=== PATIENT | female | born 1950 | race Caucasian/White ===

== ENCOUNTER 2021-04-01 17:05 | Inpatient (IN) | payer OTHER ==
[~2021-04-01] VITALS: Ht 149.9 cm; Wt 51.7 kg
--- NOTE | ~2021-04-01 | HC ---
[facility] [place] [address] CONSULTATION Name: JOSE FALLON Room #: 210-P [facility] IN .R.#: [id number] Admission: 04/01/21 Attend Phys: David Knight Discharge: Date of : 54 Report #: [id number] THIS REPORT FOR: cc: Felipe Downey,Taras Villar MD ~ cc: Frank Mead MD, Cooper Van MD [facility], Maximo Blue REASON FOR CONSULTATION: History of renal cell carcinoma with possible anginal chest pain. HISTORY OF PRESENT ILLNESS: The patient is a pleasant 70-year-old female from _[place] who developed chest pain that is different than usual and was admitted to [place]. Her history is significant for a diagnosis of renal cell carcinoma from several years ago, who also has a history of pulmonary emboli with bleeding on anticoagulant with subsequent placement of IVC filter within the last year or two. The question has now been raised about whether they should consider an angiogram and if lesions are found whether they can place a stent and safely place the patient on dual antiplatelet therapies. When the patient had her last GI bleed outside at [facility], they had elected not to do a GI evaluation, she had one several years earlier that was unrevealing. The patient does have a history of peptic ulcer disease, GERD, etc. The patient on this admission does have a CAT scan angio showing small volume pulmonary emboli without any evidence of clot in her legs. The patient had developed the onset of chest pain different than usual. No recent fevers, no chills, no new arm or leg swelling recently. No new skin rash. She does have some diarrhea related to her chemotherapy pill called cabozantinib. No swallowing difficulties. No mouth sores. PAST HISTORY: Notable for the metastatic renal cell carcinoma. The patient has been evaluated for abdominal pain in 10/2010 was found to have a 4 cm renal cell carcinoma with a partial nephrectomy at that time. In 11/2014, she had a local recurrence with a partial nephrectomy on the right. Outside records mention that in 01/2018, she had a left partial nephrectomy for a 1.5 cm tumor. 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 Unfortunately, in 10/2018, a CAT scan ____ bony lesions, particularly L5. This was biopsied with subsequent radiation therapy. In 12/2018, the patient began ipilimumab and Opdivo, which is complicated with colitis requiring infliximab and steroids. The patient then began pazopanib in 05/2019. She had quite a bit of diarrhea and this had to be held. In 05/2020, she was begun on cabozantinib at a lower dose of 40 a day. This had to be reduced and she is currently on every other day dosing. I believe, I saw her recent report that showed she had stable disease. She also has a history for what looks like a pulmonary emboli as mentioned in the past [facility] [address] [place] [address] CONSULTATION Name: JOSE FALLON Room #: 210-P [facility] IN ..#: [id number] Admission: 04/01/21 Attend Phys: David Knight Discharge: Date of : 54 Report #: [id number] with bleeding on anticoagulant and subsequent IVC filter. She does not see any obvious blood in her urine or stool, but has recently received IV iron from her medical oncologist suggesting that she is losing iron somewhere. She received several doses and has received initiation of a course of INFeD/iron infusion here. She also has ineffective production, had a low EPO level, was begun on Procrit or similar agent back in 10/2020 by the patient's description and the notes from Dr. Blue. She also has a history of interstitial cystitis, COPD, diverticulitis, GERD, hyperlipidemia, history of hypertension, history of osteoarthritis, history of peptic ulceration in the past, quit smoking in 1992. 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 Also, several dogs if I understand correctly, also ____. PHYSICAL EXAMINATION: GENERAL: The patient appears her stated age. VITAL SIGNS: Recent height is 4 feet 11 inches, weight is 123.4 pounds, blood pressure is 110/69, O2 sat 96%, pulse 77, respirations 20, afebrile at 97.9. NEUROLOGIC: Mood, she is alert, pleasant, conversant. HEENT: Face is symmetrical. Speech and thought pattern are normal. LUNGS: Clear to auscultation anteriorly without any rhonchi, wheezes, rales. Symmetric, unlabored expansion. HEART: Appears regular rate. LYMPHATICS: No enlarged lymph nodes in the supraclavicular, cervical, axillary or inguinal region. ABDOMEN: Nonobese. No masses, nontender. EXTREMITIES: Perhaps trace edema if any. No obvious skin rash. LABORATORY DATA: Shows a creatinine of 1.3. Iron studies show iron of 33, low, percent saturation 19%. Coags baseline were normal. White count here is 3.5 today, hemoglobin 9.9, MCV 95.3, platelets 245. Ferritin 50. We do not have a differential on her blood count here. MEDICATIONS: At this time in the hospital, currently include docusate 100 daily, hydromorphone p.r.n., Xanax 0.5 q. 12 p.r.n., metoprolol 25 daily, isosorbide 30 mg daily, citalopram 40 daily, levetiracetam 750 daily, aspirin 81 daily, Ambien 5 mg at bedtime p.r.n., hydromorphone p.r.n., Tylenol p.r.n., MiraLax p.r.n., Zofran p.r.n. She is getting the IV iron 200 mg daily for 5 days. ASSESSMENT AND PLAN: 1. Iron deficiency anemia. Whether this may be related to GI blood loss, even though not obvious to patient, not sure that the GI procedure would change this much, though we will await their input. I personally would think it is probably best to avoid antiplatelet drugs or anticoagulants given her history of [facility] [address] [place] [address] CONSULTATION Name: JOSE FALLON Room #: 210-P [facility] IN [facility].#: [id number] Admission: 04/01/21 Attend Phys: David Knight Discharge: Date of : 54 Report #: [id number] bleeding. 2. Inadequate erythropoietin production, consider restarting erythropoietin agent as an outpatient with Dr. Blue. 3. History of pulmonary emboli in the past, now with small volume PE on CT angiogram, but negative ultrasound of the legs. Given history of bleeding, I would not anticoagulate, but follow clinically at this time and watch carefully. 4. Question of coronary artery disease with question of dual antiplatelet medication usage. I would probably avoid it given her history, I did discuss this with Dr. Cooper Van. 5. History of metastatic renal cell carcinoma, most likely continue cabozantinib under his direction every other day. 6. Chronic interstitial nephritis per others. 7. Chronic obstructive pulmonary disease per others. 8. History of diverticulitis and diverticulosis, not known to be a current issue. 9. Gastroesophageal reflux disease per others. 10. Hyperlipidemia per others. 11. Hypertension. Defer meds to others. 12. History of osteoarthritis per others. 13. History of smoking, quit in 1992. 14. Maintenance. Continue monitoring. By: [id number] Taras Trujillo MD /nt
[2021-04-01 17:00] VITALS: BP 122/89
[2021-04-01 19:34] VITALS: BP 136/81
[2021-04-01] MEDS ORDERED: CELEXA 20 MG TA20 MG PO (20:22)
[2021-04-01] MEDS ORDERED: ACIDOPHILUS1 EACH PO (20:27)
[2021-04-01] MEDS ORDERED: FLEXERIL PO (20:28)
[2021-04-01] MEDS ORDERED: PRAVACHOL40 MG PO (20:29)
[2021-04-01] MEDS ORDERED: KEPPRA750 MG PO (20:29)
[2021-04-01] MEDS ORDERED: COLACE100 MG PO (20:29)
[2021-04-01] MEDS ORDERED: SINGULAIR 10 MG10 M1 PO (20:30)
[2021-04-01] MEDS ORDERED: BENADRYL25 MG PO (20:31)
[2021-04-01] MEDS ORDERED: XANAX 0.5 MG0.5 M1 PO (20:32)
[2021-04-01] MEDS ORDERED: AMBIEN5 MG PO (20:33)
[2021-04-01] MEDS ORDERED: DILAUDID2 MG PO (20:33)
[2021-04-01] MEDS ORDERED: LAMOTRIGINE25 MG PO (20:35)
[2021-04-01] MEDS ORDERED: PROAIR HFA8.5 GM INH (20:36)
[2021-04-01] MEDS ORDERED: MOMETASONE FURO17 GM NASAL (20:38)
[2021-04-01] MEDS ORDERED: DICLOFENAC SOD100 MG PO (20:53)
--- NOTE | 2021-04-01 21:24 | NUR ---
NURSE UNABLE TO DRAW FROM PATIENTS PORT. LAB AWARE.
[2021-04-01 22:50] LABS: HEMATOCRIT 29.7 % (37.0-47.0); HEMOGLOBIN 9.4 gm/dL (12.0-15.0); MCH 29.7 pg (26.0-34.0); MCHC 31.5 g/dL (28.0-37.0); MCV 94.2 fL (80.0-100.0); RBC 3.15 mil/uL (4.20-5.00); RDW 18.6 % (10.5-14.5); WBC 3.9 thou/uL (4.0-11.0)
[2021-04-01 23:07] LABS: APTT 29.3 Seconds (24.5-32.8); INR 0.96; PROTIME 10.5 Seconds (10.5-12.1)
[2021-04-01 23:59] VITALS: BP 150/82
[2021-04-02 03:59] VITALS: BP 117/70
[2021-04-02 06:25] LABS: HEMATOCRIT 28.3 % (37.0-47.0); MCHC 31.8 g/dL (28.0-37.0); MCV 94.4 fL (80.0-100.0); RDW 18.1 % (10.5-14.5); WBC 3.4 thou/uL (4.0-11.0)
[2021-04-02 06:32] LABS: CALCIUM 8.2 mg/dL (8.5-10.1); CREATININE 1.2 mg/dL (0.6-1.0); POTASSIUM 3.6 mmol/L (3.5-5.1)
[2021-04-02 07:00] VITALS: BP 106/69
[2021-04-02 11:02] LABS: % SATURATION 19 % (20-39); IRON 33 ug/dL (50-170); TIBC 172 ug/dL (250-450)
[2021-04-02 12:00] VITALS: BP 136/88
--- NOTE | 2021-04-02 13:00 | EKG ---
[place] [address] [facility] [place] [address] ELECTROCARDIOGRAM REPORT Name: JOSE FALLON Room #: 210- ADM IN M.R.#: [id number] Admission: 04/01/21 Attend Phys: David Knight Discharge: Date of : 54 Report #: [id number] [facility] Test Date: 2021-04-02 Test Time: 08:35:16 Pat Name: JOSE FALLON Department: Room: 210 Gender: F Photo Engraver: CONCHITA : 1950 Requested By: Frank Mead Order Number: [id number] MD: Cooper Van Measurements Intervals [place] Rate: 84 P: 51 OR: 193 QRS: 10 QRSD: 83 T: -25 QT: 394 QTc: 466 Interpretive Statements Sinus rhythm Borderline T abnormalities, diffuse leads No previous ECG available for comparison Electronically Signed On 04-02-2021 13:00:15 CDT by Cooper Van [email or web address] <ELECTRONICALLY SIGNED> By: Cooper Van MD, [facility] 04/02/21 1300 0835 [id number] Cooper Van MD, FAC /EPI
[2021-04-02 15:50] VITALS: BP 134/70
--- NOTE | 2021-04-02 18:33 | NUR ---
ASSESSMENT CHARTED - MEDS PER BITA HAN DIET AND FLUIDS. PT UP TO THE BATHROOM WITH ASSIST. PT SEEN BY CARDIOLOGY TODAY HEPARIN D/C'D AND PT PLACE ON PO IMDUR AND NTG PAST REMOVED. PT WITH CO'S AT BACK PAIN GIVEN HYROMORPHONE 4 MGS DOSE - WILL REASSESS. HUBAND INTO VISIT. TESTING COMPLETED ORDERED. PT WITH NO CO'S OF [place]. STATES COMFORTABLE AT THE PRESENT TIME.
--- NOTE | 2021-04-02 19:22 | NUR ---
ALERTED CARDIAC PROVIDER TO PATIENTS PE. PROVIDER NOTED PATIENTS HX OF GI BLEEDING IN HOLDING ANTICOAGULATION. NURSE INSTRUCTED TO CONTINUE MONITORING.
[2021-04-02 20:15] VITALS: BP 119/75
[2021-04-03 04:45] VITALS: BP 110/69
[2021-04-03 04:53] LABS: HEMATOCRIT 31.3 % (37.0-47.0); HEMOGLOBIN 9.9 gm/dL (12.0-15.0); MCH 30.1 pg (26.0-34.0); MCHC 31.6 g/dL (28.0-37.0); MCV 95.3 fL (80.0-100.0); RBC 3.28 mil/uL (4.20-5.00); RDW 18.5 % (10.5-14.5); WBC 3.5 thou/uL (4.0-11.0)
[2021-04-03 05:26] LABS: CALCIUM 8.6 mg/dL (8.5-10.1); CREATININE 1.3 mg/dL (0.6-1.0); POTASSIUM 4.2 mmol/L (3.5-5.1)
[2021-04-03 08:00] VITALS: BP 147/94
--- NOTE | 2021-04-03 08:43 | EKG ---
[facility] [place] [address] ELECTROCARDIOGRAM REPORT Name: JOSE FALLON Room #: 210-P ADM IN M.R.#: [id number] Admission: 04/01/21 Attend Phys: David Knight Discharge: Date of : 54 Report #: [id number] [facility] Test Date: 2021-04-03 Test Time: 07:15:57 Pat Name: JOSE FALLON Department: Room: 210 P Gender: F Electronic Publisher: JENNIFER : 1950 Requested By: Cooper Van Order Number: [id number] MD: Cooper Van Measurements Intervals [place] Rate: 73 P: 68 FL: 210 QRS: 25 QRSD: 82 T: 17 QT: 392 QTc: 432 Interpretive Statements Sinus rhythm Borderline low voltage, extremity leads Compared to ECG 04/02/2021 08:35:16 T-wave abnormality no longer present Electronically Signed On 04-03-2021 8:43:14 CDT by Cooper Van [email or web address] <ELECTRONICALLY SIGNED> By: Cooper Van MD, [facility] 04/03/21 0843 0715 4 Cooper Van MD, FACC /EPI
[2021-04-03 11:40] VITALS: BP 100/59
--- NOTE | 2021-04-03 13:36 | 2DMMODE ---
[facility] [place] [address] 2 D/M-MODE ECHOCARDIOGRAM Name: JOSE FALLON Room #: 210-P ADM IN M.R.#: [id number] Admission: 04/01/21 Attend Phys: David Knight Discharge: Date of : 54 Report #: [id number] THIS REPORT FOR: cc: Felipe Downey,Felipe Coelho,Cooper Belle MD [facility] ~ APPROVED REPORT Study performed: 04/03/2021 09:30:40 EXAM: Comprehensive 2D, Doppler, and color-flow Echocardiogram Patient Location: Bedside Room #: 210 Status: routine BSA: 1.50 HR: 82 bpm BP: 147/94 mmHg Rhythm: NSR Other Information Study Quality: Good Indications Elevated Troponin Chest Pain Hypertension/HDD 2D Dimensions RVDd: 28.46 mm IVSd: 8.68 (7-11mm) LVOT Diam: 18.14 (18-24mm) LVDd: 41.92 mm PWd: 8.65 (7-11mm) Ascending Ao: 28.16 (22-36mm) LVDs: 28.19 (25-40mm) Left Atrium: 27.44 (27-40mm) Aortic Root: 29.85 mm IVC: 8.00 mm Volumes Left Atrial Volume (Systole) Single Plane 4CH: 32.54 mL Single Plane 2CH: 35.62 mL LA ESV Index: 26.00 mL/m2 Aortic Valve AoV Peak Abrahan.: 1.45 m/s AO Peak Gr.: 8.44 mmHg LVOT Max P.37 mmHg [facility] [address] [place] [address] 2 D/M-MODE ECHOCARDIOGRAM Name: JOSE FALLON Room #: 210-P [facility] IN [facility]#: [id number] Admission: 04/01/21 Attend Phys: David Longoria Discharge: Date of : 54 Report #: [id number] LVOT Max V: 1.16 m/s SADAF Vmax: 2.06 cm2 Mitral Valve E/A Ratio: 0.7 MV Decel. Time: 166.29 ms MV E Max Abrahan.: 0.86 m/s MV A Abrahan.: 1.24 m/s MV PHT: 48.22 ms IVRT: 114.19 ms Pulmonary Valve PV Peak Abrahan.: 0.91 m/s PV Peak Gr.: 3.29 mmHg Pulmonary Vein P Vein S: 0.68 m/s P Vein A: 0.30 m/s P Vein D: 0.40 m/s P Vein A Dur.: 96.9 msec P Vein S/D Ratio: 1.70 Tricuspid Valve TR Peak Abrahan.: 2.29 m/s TR Peak Gr.: 20.95 mmHg PA Pressure: 26.00 mmHg Left Ventricle The left ventricle is normal size. There is normal LV segmental wall motion. There is normal left ventricular wall thickness. The left ventricular systolic function is normal. The left ventricular ejection fraction is within the normal range. LVEF is 55-60%. Mild diastolic dysfunction Right Ventricle The right ventricle is normal size. The right ventricular systolic function is normal. Atria The left atrium size is normal. The right atrium size is normal. Aortic Valve The aortic valve is normal in structure. Trace aortic regurgitation. There is no aortic valvular stenosis. Mitral Valve The mitral valve is normal in structure. There is no mitral valve regurgitation noted. No evidence of mitral valve stenosis. [facility] [address] [place] [address] 2 D/M-MODE ECHOCARDIOGRAM Name: JOSE FALLON Room #: 210-P ADM IN .R.#: [id number] Admission: 04/01/21 Attend Phys: David Longoria Discharge: Date of : 54 Report #: [id number] Tricuspid Valve The tricuspid valve is normal in structure. There is trace tricuspid regurgitation. Estimated PAP 26 mmHg. There is no pulmonary hypertension. Pulmonic Valve The pulmonary valve is normal in structure. Trace pulmonic regurgitation. Great Vessels The aortic root is normal in size. IVC is normal in size and collapses >50% with inspiration. Pericardium There is no pericardial effusion. <Conclusion> The left ventricular systolic function is normal. There is normal LV segmental wall motion. LVEF is 55-60%. Mild diastolic dysfunction The aortic valve is normal in structure. Trace aortic regurgitation, no stenosis. The mitral valve is normal in structure. No mitral valve regurgitation. There is trace tricuspid regurgitation. Estimated pulmonary artery pressure of 26 mmHg. There is no pericardial effusion. <ELECTRONICALLY SIGNED> By: Cooper Van MD, [facility] 04/03/21 1336 1336 133 Cooper Van MD, FACC /INF
[2021-04-03 15:35] VITALS: BP 91/63
--- NOTE | 2021-04-03 18:41 | NUR ---
ASSESSMENT CHARTED - MEDS PER BITA - GUILLE DIET AND FLUIDS. NO CO'S OF PAIN OR NAUSEA. PT SEEN BY PHY AND OCC THERAPY THIS SHIFT - SEEN BY GI DOC ORDERS NOTED. ECHO COMPLETED. DR GUAJARDO INTO SEE PATIENT ( ONCOLOLOGY). NO CO'S AT THE PRESENT TIME.
[2021-04-03 20:15] VITALS: BP 104/69
[2021-04-04 04:45] VITALS: BP 147/82
--- NOTE | 2021-04-04 06:21 | NUR ---
SLEPT MOST OF SHIFT. UP AD SURYA IN ROOM. DENIES COMPLAINTS OF CHESTPAIN OR BLEEDING. WORKING ON GOALS AND PLAN OF CARE FOR NOC. CONTINUE TO ASSES CLOSELY.
[2021-04-04 07:32] LABS: HEMATOCRIT 37.6 % (37.0-47.0); HEMOGLOBIN 11.5 gm/dL (12.0-15.0); MCH 29.3 pg (26.0-34.0); MCHC 30.6 g/dL (28.0-37.0); MCV 95.7 fL (80.0-100.0); RBC 3.93 mil/uL (4.20-5.00); WBC 5.5 thou/uL (4.0-11.0)
[2021-04-04 07:41] LABS: CALCIUM 9.2 mg/dL (8.5-10.1); CREATININE 1.3 mg/dL (0.6-1.0); POTASSIUM 3.8 mmol/L (3.5-5.1)
[2021-04-04 08:00] VITALS: BP 114/74; BP 121/85
[2021-04-04] MEDS ORDERED: BAYER CHEWABLE81 MG PO (09:00)
[2021-04-04] MEDS ORDERED: IMDUR 30 MG TAB30 M1 PO (09:00)
[2021-04-04] MEDS ORDERED: METOPROLOL SUCC25 M1 PO (09:00)
[2021-04-04 12:30] VITALS: BP 81/58
[2021-04-04 13:15] VITALS: BP 81/58
--- NOTE | 2021-04-04 14:04 | NUR ---
ASSUMED CARE SHIFT CHANGE.VSS DENIES CP. C/O BACK PAIN MANAGED WITH PO PAIN MEDS. HGB STABLE. PT TO SEE GI OUTPT. DC ORDERS. DISCUSSED WITH PT COMMUNICATES UNDERSTANDING. TELE REMOVED. PORT DEACCESSED. PT LEFT UNIT WITH ALL BELONGINGS.
== END 2021-04-04 14:26 | disposition home or self-care (01) | DRG 280 ==
LOC: 2N 17:05
PROVIDERS: Hospitalist; Internal Medicine; ADMIT Hospitalist; ATTEND Hospitalist
DX: I21.4 Non-ST elevation (NSTEMI) myocardial infarction (principal); I26.99 Other pulmonary embolism without acute cor pulmonale; R65.11 Systemic inflammatory response syndrome (SIRS) of non-infectious origin with acute organ dysfunction; I47.1 Supraventricular tachycardia; C64.9 Malignant neoplasm of unspecified kidney, except renal pelvis; C79.51 Secondary malignant neoplasm of bone; K21.9 Gastro-esophageal reflux disease without esophagitis; J44.9 Chronic obstructive pulmonary disease, unspecified; D50.9 Iron deficiency anemia, unspecified; F41.9 Anxiety disorder, unspecified; M19.90 Unspecified osteoarthritis, unspecified site; E78.5 Hyperlipidemia, unspecified; N18.9 Chronic kidney disease, unspecified; I12.9 Hypertensive chronic kidney disease with stage 1 through stage 4 chronic kidney disease, or unspecified chronic kidney disease; G89.29 Other chronic pain; I25.10 Atherosclerotic heart disease of native coronary artery without angina pectoris; N30.10 Interstitial cystitis (chronic) without hematuria; Z96.653 Presence of artificial knee joint, bilateral; Z87.891 Personal history of nicotine dependence; Z86.711 Personal history of pulmonary embolism; Z88.1 Allergy status to other antibiotic agents; Z95.5 Presence of coronary angioplasty implant and graft; Z88.5 Allergy status to narcotic agent; Z88.0 Allergy status to penicillin; Z88.8 Allergy status to other drugs, medicaments and biological substances; Z79.899 Other long term (current) drug therapy; Z90.710 Acquired absence of both cervix and uterus
CPT/HCPCS: 10081